=== PATIENT | female | born 1980 | race Caucasian/White ===

== ENCOUNTER 2021-02-27 12:20 | Emergency (ER) | payer SELFPAY ==
[~2021-02-27] VITALS: Ht 170.2 cm; Wt 48.0 kg
--- NOTE | 2021-02-27 12:20 | NUR ---
Report received from [facility], changed into gown and placed on monitor. Pt drowsy but follows commands and able to answer orientation questions appropriately. Pt states she took heroin earlier and this is normal for her when she does heroin. Pt states she is homeless with unkempt look present and sores all over both arms with scratch garcia to face, chest, shoulders and arms noted.
[2021-02-27 13:21] LABS: BASOPHILS % (AUTO) 1 % (0-1); EOSINOPHILS % (AUTO) 2 % (1-7); LYMPHOCYTES % (AUTO) 36 % (22-44); MEAN CORPUSCULAR HEMOGLOBIN 29.6 pg (27.0-34.8); MEAN CORPUSCULAR HGB CONC 33.5 g/dL (32.4-35.8); MEAN PLATELET VOLUME 7.3 fL (7.4-10.4); MONOCYTES % (AUTO) 8 % (2-9); NEUTROPHILS % (AUTO) 52 % (42-75); PLATELET COUNT 356 x10^3/uL (130-400); RED BLOOD COUNT 4.13 x10^6/uL (3.82-5.3); RED CELL DISTRIBUTION WIDTH 13.5 % (9.6-15.2)
[2021-02-27 13:23] LABS: ALANINE AMINOTRANSFERASE 20 U/L (12-78); ALBUMIN 3.6 g/dL (3.4-5.0); ANION GAP 7 mmol/L (5-15); CALCIUM 8.6 mg/dL (8.5-10.1); CHLORIDE 104 mmol/L (98-107); CREATININE 0.79 mg/dL (0.55-1.02)
[2021-02-27 13:26] LABS: ALKALINE PHOSPHATASE 60 U/L (45-117); BILIRUBIN,TOTAL 0.7 mg/dL (0.2-1.0); MD NO
--- NOTE | 2021-02-27 13:28 | NUR ---
Pt up out of bed with eyes closed, stumbling around as if dancing. Pt cooperative with redirection back into bed and monitoring equipment reapplied.
--- NOTE | 2021-02-27 13:51 | NUR ---
Pt on Q15min visual checks at this point for safety concerns after found up at foot of bed and unsteady on her feet with pt still in bed and restless off/on on each check thus far.
--- NOTE | 2021-02-27 14:20 | NUR ---
Pt up out of bed again and redirected back to bed easily.
--- NOTE | 2021-02-27 14:53 | NUR ---
Pt found up in doorway of room lifting and lowering each leg in a dance. Urine hat and cup obtained and walked pt to bathroom with minimal one-person assist but with noted very unsteady gait, stiff, high-stepping and crossing over center line with each step. Pt walked back to room and placed in bed at this time. Frequent jerking, spastic movements of body present and appear uncontrollable by pt followed by stillness for a brief time. Pt continues to scratch at arms and chest frequently.
[2021-02-27 15:00] VITALS: BP 113/58
--- NOTE | 2021-02-27 15:09 | NUR ---
Pt found in doorway again and redirected back to bed. Report given to LUCRECIA Stevens and care transferred now.
[2021-02-27 15:11] LABS: MICROSCOPIC AUTO
[2021-02-27 15:25] LABS: AMPHETAMINE SCREEN, URINE Positive (Negative); BARBITURATE SCREEN, URINE Negative (Negative); BENZODIAZEPINE SCREEN, URINE Negative (Negative); CANNABINOID SCREEN, URINE Positive (Negative); COCAINE SCREEN, URINE Negative (Negative); METHADONE SCREEN, URINE Negative (Negative); OPIATE SCREEN, URINE Positive (Negative)
--- NOTE | 2021-02-27 15:27 | NUR ---
PT NOTED TO BE AMBULATING OUT OF ROOM ON RNS ARRIVAL, PT REDIRECTED INTO BED SAFELY AND BED RAILS UP BIALTERALLY. PT UNCOOPERATIVE WITH ASSESSMENTS. PT IN [facility] WITH NO SIGNS OR SYMPTOMS OF ACUTE DISTRESS NOTED RESPIRATIONS EVEN AND UNLABORED.
[2021-02-27] MEDS ORDERED: FOSFOMYCIN 3 GM PACKET ONE (15:42)
--- NOTE | 2021-02-27 15:51 | NUR ---
PT ABLE TO SIT UP AND DRINK WATER WITHOUT CHOKING OR COUGHING, MEDIACTION ADMINISTERED ORDERED. PT STILL UNCOOPERATIVE WITH ASSESSMENTS, NOT ANSWERING QUESTIONS, CLOSES EYES AND COVERS SELF WITH BLANKET WHEN APPROACHED. NO SIGNS OR SYMPTMOS OF ACUTE DISTRESS NOTED PT INTERMITTENTLY UP TO AMBULATE AROUND ROOM, NOTED UNSTEADY GAIT AND SPASTIC MOVEMENTS. PT REDIRECTS WITH DIFFICULTY BACK INTO BED, RAILS UP BILATERALLY AND GURNEY IN VIEW OF STATION.
[2021-02-27] MEDS ORDERED: FOSFOMYCIN 3 GM PACKET PO ONE (16:00)
--- NOTE | 2021-02-27 17:34 | NUR ---
PT STATES SHE FEELS READY TO GO HOME, HOWEVER RN UNABLE TO GET PT TO AGREE TO DC INSTRUCTIONS. PT THREW HER PAPERS ON THE GROUND AND STARTED KICKING THEM, THEN WALKED OUT UNIT WITHOUT ANY PAPERS. SECURITY FOLLOWING. NO S SIGNS OR SYMPTOMS OF ACUTE DSITRESS NOTED RESPIRATIONS EVEN AND UNLABORED
== END 2021-02-27 17:37 | disposition home or self-care (01) ==
LOC: ED 17:30
DX: F12.121 Cannabis abuse with intoxication delirium (principal); F15.121 Other stimulant abuse with intoxication delirium; F15.159 Other stimulant abuse with stimulant-induced psychotic disorder, unspecified; N30.00 Acute cystitis without hematuria
CPT/HCPCS: 36415; 80053; 80307; 80320; 81001; 84703; 85025; 87086; 99285; G0480